=== PATIENT | male | born 1965 | race Caucasian/White ===

== ENCOUNTER 2018-04-07 03:20 | Emergency (ER) | payer MEDICARE ==
[~2018-04-07] VITALS: Ht 182.9 cm; Wt 149.7 kg
[2018-04-07] MEDS ORDERED: GLUCOPHAGE500 MG PO (03:41)
== END 2018-04-07 05:44 | disposition home or self-care (01) ==
LOC: ED 03:20
DX: N20.0 Calculus of kidney (principal)
CPT/HCPCS: 74177; 80053; 81001; 83690; 85025; 96374; 96375; 99284-25; J2270; J2405; Q9967